=== PATIENT | male | born 1980 | race Caucasian/White ===

== ENCOUNTER 2018-09-03 11:45 | Emergency (ER) | payer MEDICAID ==
[~2018-09-03] VITALS: Ht 175.3 cm; Wt 73.0 kg
[~2018-09-03 11:45] MED LIST: HYDR-4383 PO; NAPR-1154 PO
[2018-09-03 11:52] VITALS: BP 140/97
[2018-09-03] MEDS ORDERED: HYDR-4353 PO (12:47)
[2018-09-03] MEDS ORDERED: PENI500T2 PO (12:47)
== END 2018-09-03 13:04 | disposition home or self-care (01) ==
LOC: ER 11:46
DX: K02.9 Dental caries, unspecified (principal); Z79.899 Other long term (current) drug therapy
CPT/HCPCS: 99283

== ENCOUNTER 2019-04-15 19:49 | Emergency (ER) | payer MEDICAID, OTHER ==
[~2019-04-15] VITALS: Ht 175.3 cm; Wt 77.0 kg
[2019-04-15] MEDS ORDERED: CefTRIAXone 250MG IM Kit w/LIDOcaine IM ONE (19:55)
[2019-04-15] MEDS ORDERED: penicillin G benzathine 1.2 million unit/2ml syringe IM ONE (19:55)
[2019-04-15] MEDS ORDERED: azithromycin 250mg tablet PO ONE (19:55)
[2019-04-15 20:16] VITALS: BP 143/99
[2019-04-17 05:17] LABS: RPR Non Reactive (Non Reactive)
== END 2019-04-15 20:43 | disposition home or self-care (01) ==
LOC: ER 19:50
DX: Z11.3 Encounter for screening for infections with a predominantly sexual mode of transmission (principal); Z79.899 Other long term (current) drug therapy
CPT/HCPCS: 36415; 86592; 87491; 87591; 96372; 99284; J0561; J0696